=== PATIENT | male | born 1945 | race Caucasian/White ===

== ENCOUNTER 2017-02-01 16:58 | Emergency (ER) | payer MEDICARE, OTHER ==
--- NOTE | 2017-02-01 17:33 | ER Document Report ---
ED Medical Screen (RME) - General Chief Complaint: Foreign Body in Eye Stated Complaint: FOREIGN OBJECT IN LEFT EYE Notes: This 71-year-old male patient was moving a box on a high shelf in the garage, and some debris fell on his left. Feels a little irritated. It was irrigated home. Tetracaine drops were placed. Triage, and it made the feel much better. I have greeted and performed a rapid initial assessment of this patient. A comprehensive ED assessment and evaluation of the patient, analysis of test results and completion of the medical decision making process will be conducted by additional ED providers. TRAVEL OUTSIDE OF THE [place] IN LAST 30 DAYS: No - Related Data Allergies/Adverse Reactions: No Known Allergies Allergy (Unverified 02/01/17 17:24) Past Medical History - Past Medical History Cardiac Medical History: Reports: Hx Hypercholesterolemia, Hx Hypertension Endocrine Medical History: Reports: Hx Diabetes Mellitus Type 2 Renal/ Medical History: Denies: Hx Peritoneal Dialysis GI Medical History: Reports: Hx Gastroesophageal Reflux Disease - Immunizations Hx Diphtheria, Pertussis, Tetanus Vaccination: Yes Physical Exam - Vital signs Vitals: Temp Pulse Resp BP Pulse Ox 98.4 F 70 16 133/69 H 94 02/01/17 17:24 02/01/17 17:24 02/01/17 17:24 02/01/17 17:24 02/01/17 17:24 Course - Vital Signs Vital signs: Temp Pulse Resp BP Pulse Ox 98.4 F 70 16 133/69 H 94 02/01/17 17:24 02/01/17 17:24 02/01/17 17:24 02/01/17 17:24 02/01/17 17:24
--- NOTE | 2017-02-01 18:12 | ER Document Report ---
HPI - HPI Patient complains to provider of: left eye irritation Onset: This afternoon Onset/Duration: Sudden Quality of pain: Achy Pain Level: 2 Context: Patient presents emergency department with complaints of left eye irritation. Patient reports he was working in the garage and thinks that some dust fell in his eye. He does not wear contacts but does wear glasses.. Denies problems with his vision. Associated Symptoms: None Exacerbated by: Denies Relieved by: Denies Similar symptoms previously: No Recently seen / treated by doctor: No - DERM Skin Color: Normal Past Medical History - General Information source: Patient - Social History Smoking Status: Unknown if Ever Smoked Cigarette use (# per day): No Frequency of alcohol use: None Drug Abuse: None Lives with: Family Family History: Reviewed & Not Pertinent Patient has suicidal ideation: No Patient has homicidal ideation: No - Past Medical History Cardiac Medical History: Reports: Hx Hypercholesterolemia, Hx Hypertension Endocrine Medical History: Reports: Hx Diabetes Mellitus Type 2 Renal/ Medical History: Denies: Hx Peritoneal Dialysis GI Medical History: Reports: Hx Gastroesophageal Reflux Disease Surgical Hx: Negative - Immunizations Hx Diphtheria, Pertussis, Tetanus Vaccination: Yes Vertical Provider Document - CONSTITUTIONAL Agree With Documented VS: Yes Exam Limitations: No Limitations General Appearance: WD/WN, No Apparent Distress - nontoxic looking - INFECTION CONTROL TRAVEL OUTSIDE OF THE [place] IN LAST 30 DAYS: No - HEENT HEENT: Atraumatic, Normocephalic, PERRLA. negative: Conjuctival Injection - NECK Neck: Normal Inspection, Supple - RESPIRATORY Respiratory: No Respiratory Distress O2 Sat by Pulse Oximetry: 94 - CARDIOVASCULAR Cardiovascular: Regular Rate - MUSCULOSKELETAL/EXTREMETIES Musculoskeletal/Extremeties: MAEW, FROM - NEURO Level of Consciousness: Awake, Alert, Appropriate Motor/Sensory: No Motor Deficit - DERM Integumentary: Warm, Dry Course - Re-evaluation Re-evalutation: 02/01/17 18:27 Patient reports immediate relief after tetracaine applied. Left eye irrigated with over 20 mL of normal saline. No foreign body noted. No fluorescein uptake noted Patient was prescribed erythromycin prophylactically since he is a diabetic and he was also instructed to follow up with Dr. Guerra tomorrow. He verbalized understanding. - Vital Signs Vital signs: Temp Pulse Resp BP Pulse Ox 98.4 F 70 16 133/69 H 94 02/01/17 17:24 02/01/17 17:24 02/01/17 17:24 02/01/17 17:24 02/01/17 17:24 Procedures - Eye Procedure Left Eye Irrigated w/ Saline (ccs): 25 Alcaine Drops Administered: Yes - tetracaine Fluorescein applied: Left Slit lamp used: No Notes: 02/01/17 18:30 wang lamp utilized, patient reports immediate relief of irritation after tetracaine applied. No foreign body noted no fluorescein uptake noted. Patient was instructed on erythromycin prophylactically and importance of follow -up with Dr. Higginbotham tomorrow Discharge - Discharge Clinical Impression: Irritation of left eye, Elevated blood pressure reading Condition: Stable Disposition: HOME, SELF-CARE Instructions: Erythromycin ([facility]) Additional Instructions: *You have been evaluated for eye irritation *Apply 1/2 inch erythromycin to left bottom lid three times a day for 3 days. *Good hand washing- Do not reuse wash clothes or towels after wiping eyes *Follow up with Dr Gurera for recheck tomorrow *Return to ED for worsening condition, changes, needs Monitor your blood pressure. Your blood pressure was elevated today. This may be because you were anxious, in pain or because you need medication. It is important to follow up with your primary care provider for full evaluation. Forms: Elevated Blood Pressure
[2017-02-01] MEDS ORDERED: ERYTHROMYCIN 0.5% OPH OINTMENT 3.5 GM (ER DISP) OS PRN (18:14)
[2017-02-01 19:30] VITALS: BP 124/66
== END 2017-02-01 19:28 | disposition home or self-care (01) ==
LOC: ER 16:58
DX: H57.9 Unspecified disorder of eye and adnexa (principal); I10 Essential (primary) hypertension; E11.9 Type 2 diabetes mellitus without complications
CPT/HCPCS: 99283; A9270

== ENCOUNTER 2017-02-05 13:29 | Emergency (ER) | payer MEDICARE, OTHER ==
[2017-02-05] MEDS ORDERED: ONDANSETRON HCL INJ/PF 4 MG/2 ML SDV IV ONE (15:02)
[2017-02-05] MEDS ORDERED: MORPHINE SULFATE 10 MG/ML INJ IV ONE (15:02)
--- NOTE | 2017-02-05 15:03 | ER Document Report ---
ED Medical Screen (RME) - General Chief Complaint: Flank Pain Stated Complaint: LEFT FLANK PAIN Mode of Arrival: Ambulatory Information source: Patient Notes: 71-year-old male presents with complaints of left flank pain since last night o' clock. Patient notes one episode of vomiting around 3 AM. Denies any previous abdominal history denies any previous abdominal surgeries I have greeted and performed a rapid initial assessment of this patient. A comprehensive ED assessment and evaluation of the patient, analysis of test results and completion of the medical decision making process will be conducted by additional ED providers. PHYSICAL EXAMINATION: GENERAL: Well-appearing, well-nourished and in no acute distress. HEAD: Atraumatic, normocephalic. EYES: Pupils equal round and reactive to light, extraocular movements intact, sclera anicteric, conjunctiva are normal. ENT: Nares patent, oropharynx clear without exudates. Moist mucous membranes. NECK: Normal range of motion, supple without lymphadenopathy LUNGS: Breath sounds clear to auscultation bilaterally and equal. No wheezes rales or rhonchi. HEART: Regular rate and rhythm without murmurs ABDOMEN: Soft, nontender, nondistended abdomen. No guarding, no rebound. No masses appreciated. Left CVA tenderness Musculoskeletal: Normal range of motion, no pitting or edema. No cyanosis. NEUROLOGICAL: Cranial nerves grossly intact. Normal speech, normal gait. Normal sensory, motor exams PSYCH: Normal mood, normal affect. SKIN: Warm, Dry, normal turgor, no rashes or lesions noted. TRAVEL OUTSIDE OF THE [place] IN LAST 30 DAYS: No - Related Data Allergies/Adverse Reactions: No Known Allergies Allergy (Verified 02/01/17 17:33) Past Medical History - Past Medical History Cardiac Medical History: Reports: Hx Hypercholesterolemia, Hx Hypertension Endocrine Medical History: Reports: Hx Diabetes Mellitus Type 2 Renal/ Medical History: Denies: Hx Peritoneal Dialysis GI Medical History: Reports: Hx Gastroesophageal Reflux Disease - Immunizations Hx Diphtheria, Pertussis, Tetanus Vaccination: Yes Physical Exam - Vital signs Vitals: Temp Pulse BP Pulse Ox 97.3 F 60 151/64 H 97 02/05/17 14:11 02/05/17 14:11 02/05/17 14:11 02/05/17 14:11 Course - Vital Signs Vital signs: Temp Pulse Resp BP Pulse Ox 97.3 F 60 151/64 H 97 02/05/17 14:11 02/05/17 14:11 02/05/17 14:11 02/05/17 14:11
[2017-02-05 15:31] LABS: ABSOLUTE MONOCYTES (AUTO) 0.4 10^3/uL (0.1-1.4); ABSOLUTE NEUT (AUTO) 9.4 10^3/uL (1.7-8.2); BASOPHILS % (AUTO) 0.1 % (0-2); EOSINOPHILS % (AUTO) 0.1 % (0-6); HEMATOCRIT 42.9 % (37.9-51.0); HEMOGLOBIN 14.3 g/dL (13.5-17.0); LYMPHOCYTES % (AUTO) 9.6 % (13-45); MEAN CORPUSCULAR HEMOGLOBIN 28.6 pg (27.0-33.4); MEAN CORPUSCULAR HGB CONC 33.4 g/dL (32.0-36.0); MEAN CORPUSCULAR VOLUME 86 fl (80-97); MONOCYTES % (AUTO) 3.9 % (3-13); RED CELL DISTRIBUTION WIDTH 13.3 % (11.5-14.0); SEGMENTED NEUTROPHILS % (AUTO) 86.3 % (42-78); WHITE BLOOD COUNT 10.9 10^3/uL (4.0-10.5)
[2017-02-05 15:49] LABS: ALANINE AMINOTRANSFERASE 26 U/L (21-72); ALBUMIN 4.7 g/dL (3.5-5.0); ALKALINE PHOSPHATASE 72 U/L (38-126); ANION GAP 14 (5-19); ASPARTATE AMINO TRANSFERASE 18 U/L (17-59); BILIRUBIN,DIRECT 0.3 mg/dL (0.0-0.4); BILIRUBIN,TOTAL 0.8 mg/dL (0.2-1.3); BLOOD UREA NITROGEN 22 mg/dL (7-20); CALCIUM 10.2 mg/dL (8.4-10.2); CARBON DIOXIDE 29 mmol/L (22-30); CHLORIDE 100 mmol/L (98-107); CREATININE RESULT 0.81 mg/dL (0.52-1.25); GLUCOSE 216 mg/dL (75-110); LIPASE 71.7 U/L (23-300); POTASSIUM 4.9 mmol/L (3.6-5.0); SODIUM 143.1 mmol/L (137-145); TOTAL PROTEIN 7.2 g/dL (6.3-8.2)
--- NOTE | 2017-02-05 16:04 | ER Document Report ---
ED General - General Chief Complaint: Flank Pain Stated Complaint: LEFT FLANK PAIN Time seen by provider: 16:03 Mode of Arrival: Ambulatory Information source: Patient, Relative TRAVEL OUTSIDE OF THE [place] IN LAST 30 DAYS: No - HPI Notes: 71-year-old male presents with complaints of left flank pain since last night with consistent pain since that time. Patient notes one episode of vomiting around 3 AM. Denies any previous abdominal history denies any previous abdominal surgeries. Patient reports that one year ago he had a colonoscopy that he states was negative. Patient denies any flank pain. The question some chills currently, but has not had a measured fever. No testicular pain or groin pain. - Related Data Allergies/Adverse Reactions: No Known Allergies Allergy (Verified 02/01/17 17:33) Past Medical History - General Information source: Patient - Social History Smoking Status: Never Smoker Frequency of alcohol use: None Drug Abuse: None Family History: Reviewed & Not Pertinent Patient has suicidal ideation: No Patient has homicidal ideation: No - Past Medical History Cardiac Medical History: Reports: Hx Hypercholesterolemia, Hx Hypertension Endocrine Medical History: Reports: Hx Diabetes Mellitus Type 2 Renal/ Medical History: Denies: Hx Peritoneal Dialysis GI Medical History: Reports: Hx Gastroesophageal Reflux Disease - Immunizations Hx Diphtheria, Pertussis, Tetanus Vaccination: Yes Review of Systems - Review of Systems Notes: REVIEW OF SYSTEMS: CONSTITUTIONAL : Denies fever or sweats. Denies recent illness. EENT: Denies eye, ear, throat, or mouth pain or symptoms. Denies nasal or sinus congestion or discharge. Denies throat, tongue, or mouth swelling or difficulty swallowing. CARDIOVASCULAR: Denies chest pain. Denies palpitations or racing or irregular heart beat. Denies ankle edema. RESPIRATORY: Denies cough, cold, or chest congestion. Denies shortness of breath, difficulty breathing, or wheezing. GASTROINTESTINAL: Denies distention. Denies diarrhea. Denies blood in vomitus, stools, or per rectum. Denies black, tarry stools. Reports mild constipation with last bowel movement yesterday. GENITOURINARY: Denies difficulty urinating, painful urination, burning, frequency, blood in urine, or discharge. The patient does report mildly decreased urinary frequency. MUSCULOSKELETAL: Denies back or neck pain or stiffness. Denies joint pain or swelling. SKIN: Denies rash, lesions or sores. HEMATOLOGIC : Denies easy bruising or bleeding. LYMPHATIC: Denies swollen, enlarged glands. NEUROLOGICAL: Denies confusion or altered mental status. Denies passing out or loss of consciousness. Denies dizziness or lightheadedness. Denies headache. Denies weakness or paralysis or loss of use of either side. Denies problems with gait or speech. Denies sensory loss, numbness, or tingling. Denies seizures. PSYCHIATRIC: Denies anxiety or stress. Denies depression, suicidal ideation, or homicidal ideation. ALL OTHER SYSTEMS REVIEWED AND NEGATIVE. Dictation was performed using [employer] recognition software -: Yes All other systems reviewed and negative Physical Exam - Vital signs Vitals: Temp Pulse BP Pulse Ox 97.3 F 60 151/64 H 97 02/05/17 14:11 02/05/17 14:11 02/05/17 14:11 02/05/17 14:11 - Notes Notes: PHYSICAL EXAMINATION: GENERAL: Well-appearing, well-nourished and in no acute distress. HEAD: Atraumatic, normocephalic. EYES: Pupils equal round and reactive to light, extraocular movements intact, sclera anicteric, conjunctiva are normal. ENT: Nares patent, oropharynx clear without exudates. Moist mucous membranes. NECK: Normal range of motion, supple without lymphadenopathy LUNGS: Breath sounds clear to auscultation bilaterally and equal. No wheezes rales or rhonchi. HEART: Regular rate and rhythm without murmurs ABDOMEN: Soft, tender through the abdomen diffusely but worse to the left lower quadrant region. No rebound or guarding no obvious pulsatile mass. No inguinal hernia or mass or testicular pain. Musculoskeletal: Normal range of motion, no pitting or edema. No cyanosis. NEUROLOGICAL: Cranial nerves grossly intact. Normal speech, normal gait. Normal sensory, motor exams PSYCH: Normal mood, normal affect. SKIN: Warm, Dry, normal turgor, no rashes or lesions noted. Course - Re-evaluation Re-evalutation: 02/05/17 18:20 Patient was rehydrated with IV fluids. After medications for pain, repeat exam showed no abdominal pain and he felt stable for discharge. Patient tolerated by mouth fluids. Discomfort fits with either constipation or a early diverticulitis, thought subclinical on CT scan. No evidence for mesenteric ischemia, abdominal aortic aneurysm, perforated viscus, appendicitis, bowel obstruction. Patient given instructions to follow up with his regular practitioner and have repeat blood work performed prior to restarting metformin. 02/05/17 18:22 - Vital Signs Vital signs: Temp Pulse Resp BP Pulse Ox 98.4 F 58 L 16 141/61 H 94 02/05/17 17:20 02/05/17 17:20 02/05/17 17:20 02/05/17 17:20 02/05/17 17:20 - Laboratory Result Diagrams: 02/05/17 15:14 02/05/17 15:14 Laboratory results interpreted by me: 02/05/17 02/05/17 02/05/17 15:14 15:14 17:35 WBC 10.9 H Seg Neutrophils % 86.3 H Lymphocytes % 9.6 L Absolute Neutrophils 9.4 H BUN 22 H Glucose 216 H Urine Glucose (UA) >=500 H Urine Ketones 80 H Urine Ascorbic Acid 40 H Discharge - Discharge Clinical Impression: Dehydration Diverticulitis large intestine Qualifiers: Diverticulitis bleeding: without bleeding Diverticulitis complication: without perforation or abscess Qualified Code(s): K57.32 - Diverticulitis of large intestine without perforation or abscess without bleeding Abdominal pain Qualifiers: Abdominal location: left lower quadrant Qualified Code(s): R10.32 - Left lower quadrant pain Vomiting Qualifiers: Vomiting type: unspecified Vomiting Intractability: non-intractable Nausea presence: unspecified Qualified Code(s): R11.10 - Vomiting, unspecified Condition: Stable Disposition: HOME, SELF-CARE Instructions: Abdominal Pain ([facility]), Diverticulitis ([facility]), Intravenous (IV) Fluids ([facility]), Vomiting ([facility]) Additional Instructions: Drink plenty fluids. Liquid only diet until pain is completely resolved. Return to the emergency Department case of high fever, severe pain or vomiting. Prescriptions: Ondansetron [Zofran Odt 4 mg Tablet] 1 - 2 tab PO Q8HP PRN #10 tab.rapdis PRN Reason: For Nausea/Vomiting Ciprofloxacin HCl [Cipro 500 mg Tablet] 500 mg PO BID #20 tablet Metronidazole [Flagyl 500 mg Tablet] 500 mg PO Q6H #40 tablet
[2017-02-05] MEDS ORDERED: NORMAL SALINE 1000 ML 1,000 ML IV ONE (16:15)
[2017-02-05 17:23] VITALS: BP 141/61
[2017-02-05 17:46] LABS: APPEARANCE,URINE CLEAR; BILIRUBIN,URINE NEGATIVE (NEGATIVE); GLUCOSE, URINE >=500 mg/dL (NEGATIVE); KETONES,URINE 80 mg/dL (NEGATIVE); LEUKOCYTE ESTERASE,URINE NEGATIVE (NEGATIVE); NITRITE,URINE NEGATIVE (NEGATIVE); PROTEIN,URINE NEGATIVE (NEGATIVE); URINE SPECIFIC GRAVITY 1.055; UROBILINOGEN,URINE NEGATIVE mg/dL (<2.0)
[2017-02-05] MEDS ORDERED: METRONIDAZOLE 500 MG TABLET PO ONE (18:04)
[2017-02-05] MEDS ORDERED: CIPROFLOXACIN HCL 500 MG TABLET PO ONE (18:04)
== END 2017-02-05 18:33 | disposition home or self-care (01) ==
LOC: ER 13:29
DX: K57.32 Diverticulitis of large intestine without perforation or abscess without bleeding (principal); E86.0 Dehydration; R10.32 Left lower quadrant pain; R10.9 Unspecified abdominal pain; R11.10 Vomiting, unspecified
CPT/HCPCS: 99284; 96361; 96374; 96375; 36415; 83690; 85025; 80053; 81001; 74177; A9270 ×2; J2270; J2405; J7030

== ENCOUNTER 2018-04-09 16:41 | Emergency (ER) | payer MEDICARE, OTHER ==
[2018-04-09 16:47] VITALS: BP 119/58
[2018-04-09] MEDS ORDERED: CLINDAMYCIN HCL 150 MG CAPSULE PO ONE (17:03)
[2018-04-09] MEDS ORDERED: ACETAMINOPHEN 325 MG TABLET PO ONE (17:03)
--- NOTE | 2018-04-09 17:09 | ER Document Report ---
ED General - General Chief Complaint: Feet Swelling Stated Complaint: RIGHT FOOT PAIN Time Seen by Provider: 04/09/18 16:56 Notes: 72-year-old male PMH diabetes here with complaints of right foot insect bite that he sustained several days ago while he was outside working in his yard. He was wearing flip-flops at the time. He did not see the specific insect that bit him. Since then he has had progressively worsening redness to his right foot. He states that it is a burning sensation. He tried some over-the- counter remedies without much relief. He has not had any fevers chills nausea vomiting drainage. TRAVEL OUTSIDE OF THE [place] IN LAST 30 DAYS: No - Related Data Allergies/Adverse Reactions: No Known Allergies Allergy (Verified 02/01/17 17:33) Past Medical History - Social History Smoking Status: Never Smoker Chew tobacco use (# tins/day): No Frequency of alcohol use: None Drug Abuse: None Family History: Reviewed & Not Pertinent Patient has suicidal ideation: No Patient has homicidal ideation: No - Past Medical History Cardiac Medical History: Reports: Hx Hypercholesterolemia, Hx Hypertension Endocrine Medical History: Reports: Hx Diabetes Mellitus Type 2 Renal/ Medical History: Denies: Hx Peritoneal Dialysis GI Medical History: Reports: Hx Gastroesophageal Reflux Disease - Immunizations Hx Diphtheria, Pertussis, Tetanus Vaccination: Yes Review of Systems - Review of Systems Notes: See history of present illness for pertinent positive review of systems; otherwise all review of systems have been reviewed and are negative Physical Exam - Vital signs Vitals: Temp Pulse Resp BP Pulse Ox 97.9 F 66 16 119/58 L 97 04/09/18 16:46 04/09/18 16:46 04/09/18 16:46 04/09/18 16:46 04/09/18 16:46 - Notes Notes: PHYSICAL EXAMINATION: GENERAL: Well-appearing and in no acute distress. HEAD: Atraumatic, normocephalic. EYES: Pupils equal round and reactive to light, extraocular movements intact, sclera anicteric, conjunctiva are normal. ENT: nares patent, oropharynx clear without exudates. Moist mucous membranes. NECK: Normal range of motion, supple without lymphadenopathy LUNGS: CTAB and equal. No wheezes rales or rhonchi. HEART: Regular rate and rhythm without murmurs EXTREMITIES: Normal range of motion, no pitting edema. No cyanosis. NEUROLOGICAL: Cranial nerves grossly intact. Normal sensory/motor exams. PSYCH: Normal mood, normal affect. SKIN: Warm, Dry, normal turgor, to the right medial foot, there is a 4 x 4 cm area of mild erythema but no induration fluctuance drainage Course - Re-evaluation Re-evalutation: 04/09/18 17:07 MEDICAL DECISION MAKING: Concern for cellulitis versus localized skin reaction versus traumatic lesion If this is a cellulitis, it is very early cellulitis Given his history of diabetes, I will prescribe antibiotics and give a dose here Instructed on use of warm compresses and on follow-up with PCP next day or few Patient understands and agrees to the plan of care - Vital Signs Vital signs: Temp Pulse Resp BP Pulse Ox 97.9 F 66 16 119/58 L 97 04/09/18 16:46 04/09/18 16:46 04/09/18 16:46 04/09/18 16:46 04/09/18 16:46 Discharge - Discharge Clinical Impression: Cellulitis of foot Condition: Good Disposition: HOME, SELF-CARE Additional Instructions: You were seen in the emergency department at [facility]. Finish the antibiotics and do not skip any doses. Use Motrin and/or Tylenol for pain. Use a warm compress on the area 3-5 times daily for approximately 30-60 minutes each time. Please followup with your primary physician in the next few days for further management/evaluation. Please return to the emergency department for worsening of symptoms or any symptom that you deem to be concerning or life-threatening. Thank you for allowing us to be part of your care. Prescriptions: Clindamycin HCl 300 mg PO TID #21 capsule
== END 2018-04-09 17:13 | disposition home or self-care (01) ==
LOC: ER 16:41
DX: L03.115 Cellulitis of right lower limb (principal); E78.00 Pure hypercholesterolemia, unspecified; I10 Essential (primary) hypertension; E11.9 Type 2 diabetes mellitus without complications
CPT/HCPCS: 99283; A9270